=== PATIENT | male | born 1975 | race Caucasian/White ===

== ENCOUNTER 2022-07-06 10:09 | Inpatient (IN) | payer BC, OTHER ==
[2022-07-06] MEDS ORDERED: Iopamidol-370 76% 500 ML 1 ML ONE (11:52)
[2022-07-06] MEDS ORDERED: Ketorolac Tromethamine 30 MG/ML VIAL ONE (11:59)
[2022-07-06] MEDS ORDERED: Acetaminophen 500 MG TAB ONE (11:59)
[2022-07-06 12:54] LABS: Hemoglobin 13.5 g/dL (14.0-18.0); Mean Corpuscular HGB CONC 34.1 g/dL (32.0-36.0); Mean Corpuscular Hemoglobin 33.3 pg (27.0-31.0); Mean Corpuscular Volume 97.9 fL (78.0-98.0); Red Blood Cell (RBC) Count 4.05 mill/uL (4.70-6.10); White Blood Cell (WBC) Count 5.4 thou/uL (4.8-10.8)
[2022-07-06 13:07] LABS: ALT (SGPT) 17 U/L (8-55); AST (SGOT) 13 U/L (5-34); Alkaline Phosphatase 71 U/L (40-110); Anion Gap 14 mmol/L (10-20); BUN (Urea Nitrogen) 11 mg/dL (8.9-20.6); Bilirubin, Total 0.7 mg/dL (0.2-1.2); Calc. Creatinine Clearance 0 mL/min (70-130); Calcium 8.4 mg/dL (7.8-10.44); Carbon Dioxide 25 mmol/L (22-29); Chloride 105 mmol/L (98-107); Estimated GFR 109; Globulin 2.5 g/dL (2.4-3.5); Glucose 93 mg/dL (70-105); Potassium 4.2 mmol/L (3.5-5.1); Protein, Total 6.5 g/dL (6.0-8.3); Sodium 140 mmol/L (136-145)
[2022-07-06] MEDS ORDERED: Cefepime 2 GM VIAL ONE (13:25)
[2022-07-06] MEDS ORDERED: VANCOMYCIN 2 GRAM/500 ML BAG 2 GM in Premix Bag 1 BAG IVPB SCH (13:45)
[2022-07-06 13:50] LABS: Band 8 % (5-11); Differential Comment Immature Cell(s); Lymphocytes 41 % (21-51); MDiff Complete? YES; Mean Platelet Volume 8.9 fL (7.4-10.4); Metamyelocyte 1 % (0-0); Monocytes 17 % (0-10); Neutrophil 25 % (42-75); Platelet Count 80 thou/uL (130-400); Platelet Morphology Comment Appears Decreased; Polychromasia SLIGHT = 2-3 cells (100X) (0-2/hpf); Reactive Lymphocytes 3 % (0-10); Reflex for Review?? YES
[2022-07-06] MEDS ORDERED: Ondansetron ODT 4 MG TAB PO PRN (14:57)
[2022-07-06] MEDS ORDERED: Ondansetron PF 4 MG/2 ML Vial IVP PRN (14:57)
[2022-07-06] MEDS: Ketorolac Tromethamine 30 MG/ML VIAL IVP PRN (18:19)
[2022-07-06 19:09] VITALS: BMI 26.5
[2022-07-06] MEDS: VANCOMYCIN 1.25 GM/250 ML BAG 1.25 GM in Premix Bag 1 BAG IVPB SCH (23:35)
[2022-07-07] MEDS: VANCOMYCIN 1.25 GM/250 ML BAG 1.25 GM in Premix Bag 1 BAG IVPB SCH ×2 (07:08→16:04)
[2022-07-07 08:07] LABS: Reticulocyte Count 2.8 % (0.5-1.5)
[2022-07-07 08:23] LABS: INR-International Normal Ratio 1.1; PTT 38.5 sec (22.9-36.1); Prothrombin Time 14.1 sec (12.0-14.7)
[2022-07-07 08:25] LABS: Iron 61 ug/dL (65-175); Iron Binding Capacity, Total 261 mcg/dL (261-462)
[2022-07-07 08:27] LABS: Anion Gap 11 mmol/L (10-20); BUN (Urea Nitrogen) 12 mg/dL (8.9-20.6); Calc. Creatinine Clearance 135 mL/min (70-130); Calcium 8.4 mg/dL (7.8-10.44); Carbon Dioxide 24 mmol/L (22-29); Chloride 107 mmol/L (98-107); Estimated GFR 108; Glucose 98 mg/dL (70-105); Iron 62 ug/dL (65-175); Iron Binding Capacity, Total 265 mcg/dL (261-462); Potassium 4.4 mmol/L (3.5-5.1); Sodium 138 mmol/L (136-145); Uric Acid 4.3 mg/dL (3.5-7.2)
[2022-07-07 08:38] LABS: Band 7 % (5-11); Differential Comment Immature Cell(s); Eosinophils 2 % (0-10); Hemoglobin 13.3 g/dL (14.0-18.0); Lymphocytes 25 % (21-51); MDiff Complete? YES; Mean Corpuscular Hemoglobin 34.2 pg (27.0-31.0); Mean Corpuscular Volume 97.6 fL (78.0-98.0); Mean Platelet Volume 8.3 fL (7.4-10.4); Monocytes 5 % (0-10); Neutrophil 38 % (42-75); Platelet Count 75 thou/uL (130-400); Platelet Morphology Comment Appears Decreased; Polychromasia SLIGHT = 2-3 cells (100X) (0-2/hpf); RBC Distribution Width 12.9 % (11.5-14.5); Reactive Lymphocytes 17 % (0-10); Red Blood Cell (RBC) Count 3.89 mill/uL (4.70-6.10); White Blood Cell (WBC) Count 4.6 thou/uL (4.8-10.8)
[2022-07-07] MEDS: Ketorolac Tromethamine 30 MG/ML VIAL IVP PRN (08:38)
[2022-07-07] MEDS ORDERED: Enoxaparin Sodium 40 MG/0.4 ML SYRINGE SC SCH (09:00)
[2022-07-07] MEDS: traMADol HCl 50 MG TAB PO PRN ×3 (09:50→22:01)
[2022-07-07] MEDS: cefTRIAXone\\ROCEPHIN 2 GM in Sodium Chloride 0.9% 100 ML IVPB SCH (09:53)
[2022-07-07 10:16] LABS: Ferritin 603.74 ng/mL (22-322)
[2022-07-07] MEDS: Morphine 2 MG/ML VIAL SLOW IVP PRN ×3 (10:48→17:59)
[2022-07-07] MEDS ORDERED: Lidocaine 1% MPF 2 ML VIAL ONE (12:40)
[2022-07-07] MEDS ORDERED: Sodium Bicarbonate 2.5 MEQ/5 ML VIAL ONE (12:40)
[2022-07-07 14:35] LABS: Vancomycin, Trough 13.2 ug/mL
[2022-07-07] MEDS: Vancomycin 1.5 GRAM/300 ML BAG 1.5 GM in Premix Bag 1 BAG IVPB SCH (15:55)
[2022-07-07] MEDS: Nicotine 7 MG PATCH TD SCH (16:13)
[2022-07-08] MEDS: Vancomycin 1.5 GRAM/300 ML BAG 1.5 GM in Premix Bag 1 BAG IVPB SCH ×3 (00:49→16:29)
[2022-07-08] MEDS: Morphine 2 MG/ML VIAL SLOW IVP PRN ×3 (02:35→18:13)
[2022-07-08] MEDS: traMADol HCl 50 MG TAB PO PRN ×2 (05:46→15:07)
[2022-07-08] MEDS: Acetaminophen 500 MG TAB PO PRN ×2 (05:46→15:07)
[2022-07-08 07:31] LABS: Anion Gap 13 mmol/L (10-20); BUN (Urea Nitrogen) 10 mg/dL (8.9-20.6); Calc. Creatinine Clearance 114 mL/min (70-130); Calcium 8.3 mg/dL (7.8-10.44); Carbon Dioxide 25 mmol/L (22-29); Chloride 103 mmol/L (98-107); Estimated GFR 92; Glucose 110 mg/dL (70-105); Sodium 137 mmol/L (136-145)
[2022-07-08 08:03] LABS: Band 6 % (5-11); Eosinophils 1 % (0-10); Hemoglobin 11.9 g/dL (14.0-18.0); Lymphocytes 27 % (21-51); MDiff Complete? YES; Mean Corpuscular HGB CONC 33.9 g/dL (32.0-36.0); Mean Corpuscular Hemoglobin 32.9 pg (27.0-31.0); Mean Platelet Volume 8.1 fL (7.4-10.4); Monocytes 10 % (0-10); Myelocyte 1 % (0-0); Neutrophil 46 % (42-75); Platelet Count 84 thou/uL (130-400); Platelet Morphology Comment Appears Decreased; RBC Distribution Width 13.1 % (11.5-14.5); Reactive Lymphocytes 8 % (0-10); Red Blood Cell (RBC) Count 3.63 mill/uL (4.70-6.10); White Blood Cell (WBC) Count 4.5 thou/uL (4.8-10.8)
[2022-07-08] MEDS: cefTRIAXone\\ROCEPHIN 2 GM in Sodium Chloride 0.9% 100 ML IVPB SCH (10:42)
[2022-07-08] MEDS: Nicotine 7 MG PATCH TD SCH (13:46)
[2022-07-08 15:41] LABS: Vancomycin, Trough 18.2 ug/mL
[2022-07-09] MEDS: traMADol HCl 50 MG TAB PO PRN ×3 (00:19→17:02)
[2022-07-09] MEDS: Vancomycin 1.5 GRAM/300 ML BAG 1.5 GM in Premix Bag 1 BAG IVPB SCH ×2 (00:20→08:40)
[2022-07-09] MEDS: Morphine 2 MG/ML VIAL SLOW IVP PRN (09:28)
[2022-07-09] MEDS: cefTRIAXone\\ROCEPHIN 2 GM in Sodium Chloride 0.9% 100 ML IVPB SCH (10:44)
[2022-07-09] MEDS: Nicotine 7 MG PATCH TD SCH (13:21)
[2022-07-10 08:40] VITALS: BP 130/83; TEMP 97.9
[2022-07-10] MEDS: cefTRIAXone\\ROCEPHIN 2 GM in Sodium Chloride 0.9% 100 ML IVPB SCH (10:07)
[2022-07-10] MEDS: Nicotine 7 MG PATCH TD SCH (14:38)
== END 2022-07-10 19:30 | disposition home or self-care (01) | DRG 812 ==
LOC: ERS 10:09 → T4-B 15:42
PROVIDERS: ADMIT Hospitalist; ATTEND Family Medicine
PROC: 079T3ZX Drainage of Bone Marrow, Percutaneous Approach, Diagnostic (ICD-10-PCS; principal; 2022-07-07)
PROC: 07DR3ZX Extraction of Iliac Bone Marrow, Percutaneous Approach, Diagnostic (ICD-10-PCS; 2022-07-07)
DX: D46.9 Myelodysplastic syndrome, unspecified (principal); L03.115 Cellulitis of right lower limb; D61.818 Other pancytopenia; J44.9 Chronic obstructive pulmonary disease, unspecified; F17.210 Nicotine dependence, cigarettes, uncomplicated; R79.9 Abnormal finding of blood chemistry, unspecified; Z20.822 Contact with and (suspected) exposure to COVID-19; Z98.890 Other specified postprocedural states; Z95.828 Presence of other vascular implants and grafts; Z71.6 Tobacco abuse counseling
CPT/HCPCS: 36415; 38222; 77002; 80048; 80053; 80202; 82607; 82728; 83540; 83550; 83615; 84550; 85025; 85046; 85060; 85097; 85610; 85652; 85730; 86140; 87040; 88121; 88184; 88237; 88305; 88311; 88313; 96365; 96367; 96375; J0692; J0696; J1885; J2270; J3370; J3490; Q9967; U0003; U0005

== ENCOUNTER 2022-09-11 16:48 | Emergency (ER) | payer BC ==
[2022-09-11 17:29] LABS: ALT (SGPT) 17 U/L (8-55); AST (SGOT) 14 U/L (5-34); Albumin 4.2 g/dL (3.5-5.0); Alkaline Phosphatase 110 U/L (40-110); Anion Gap 13 mmol/L (10-20); BUN (Urea Nitrogen) 8 mg/dL (8.9-20.6); Bilirubin, Total 0.3 mg/dL (0.2-1.2); Calc. Creatinine Clearance 0 mL/min (70-130); Calcium 9.2 mg/dL (7.8-10.44); Carbon Dioxide 27 mmol/L (22-29); Chloride 104 mmol/L (98-107); Estimated GFR 98; Globulin 2.9 g/dL (2.4-3.5); Glucose 100 mg/dL (70-105); Potassium 3.5 mmol/L (3.5-5.1); Protein, Total 7.1 g/dL (6.0-8.3); Sodium 140 mmol/L (136-145)
[2022-09-11 17:48] LABS: Band 15 % (5-11); Eosinophils 9 % (0-10); Hemoglobin 11.2 g/dL (14.0-18.0); Lymphocytes 31 % (21-51); MDiff Complete? YES; Mean Corpuscular HGB CONC 34.4 g/dL (32.0-36.0); Mean Corpuscular Hemoglobin 33.7 pg (27.0-31.0); Mean Corpuscular Volume 98.1 fL (78.0-98.0); Mean Platelet Volume 17.4 fL (7.4-10.4); Monocytes 6 % (0-10); Neutrophil 31 % (42-75); Platelet Count 6 thou/uL (130-400); Platelet Morphology Comment Appears Decreased; RBC Distribution Width 16.3 % (11.5-14.5); Reactive Lymphocytes 8 % (0-10); Red Blood Cell (RBC) Count 3.31 mill/uL (4.70-6.10); Tear Drops SLIGHT = 2-5 cells (100X) (0-1/hpf); White Blood Cell (WBC) Count 5.7 thou/uL (4.8-10.8)
== END 2022-09-11 22:17 | disposition home or self-care (01) ==
LOC: ERS 16:48
DX: C92.00 Acute myeloblastic leukemia, not having achieved remission (principal); D69.6 Thrombocytopenia, unspecified; F17.210 Nicotine dependence, cigarettes, uncomplicated
CPT/HCPCS: 36415; 36430; 80053; 85025; 86850; 86900; 86901; 99283; P9035

== ENCOUNTER 2022-10-04 09:30 | Emergency (ER) | payer BC ==
[2022-10-04 10:52] LABS: PTT 40.7 sec (22.9-36.1); Prothrombin Time 13.5 sec (12.0-14.7)
[2022-10-04 11:03] LABS: Mean Corpuscular HGB CONC 34.1 g/dL (32.0-36.0); Mean Corpuscular Hemoglobin 36.4 pg (27.0-31.0); Platelet Count Less than 2 10x3/uL (130-400); Platelet Morphology Comment Appears Decreased; RBC Distribution Width 16.6 % (11.5-14.5); RBC Morphology Normal; Red Blood Cell (RBC) Count 2.47 mill/uL (4.70-6.10); White Blood Cell (WBC) Count 0.2 10x3/uL (4.8-10.8)
[2022-10-04 11:11] LABS: ALT (SGPT) 14 U/L (8-55); AST (SGOT) 16 U/L (5-34); Albumin 3.6 g/dL (3.5-5.0); Alkaline Phosphatase 79 U/L (40-110); Anion Gap 11 mmol/L (10-20); BUN (Urea Nitrogen) 12 mg/dL (8.9-20.6); Bilirubin, Total 0.8 mg/dL (0.2-1.2); Calc. Creatinine Clearance 0 mL/min (70-130); Calcium 8.6 mg/dL (7.8-10.44); Carbon Dioxide 24 mmol/L (22-29); Chloride 106 mmol/L (98-107); Estimated GFR 113; Globulin 2.7 g/dL (2.4-3.5); Glucose 83 mg/dL (70-105); Magnesium 1.9 mg/dL (1.6-2.6); Potassium 3.7 mmol/L (3.5-5.1); Protein, Total 6.3 g/dL (6.0-8.3); Sodium 137 mmol/L (136-145)
[2022-10-04 12:12] LABS: Bilirubin Negative (Negative); Blood, Urine Negative (Negative); Clarity Clear (Clear); Glucose, Urine (Dipstick) Normal (Negative); Ketone, Urine Negative (Negative); Leukocyte Negative Leu/uL (Negative); Nitrite Negative (Negative); Protein, Urine (Dipstick) Negative (Neg-Trace); Specific Gravity, Urine 1.024 (1.002-1.036); Urobilinogen 3 mg/dL (Less than 2)
== END 2022-10-04 13:53 | disposition home or self-care (01) ==
LOC: ERS 09:30
DX: C92.00 Acute myeloblastic leukemia, not having achieved remission (principal); D69.6 Thrombocytopenia, unspecified; F17.210 Nicotine dependence, cigarettes, uncomplicated; J44.9 Chronic obstructive pulmonary disease, unspecified
CPT/HCPCS: 36415; 36430; 80053; 81003; 83735; 85025; 85610; 85730; 86850; 86900; 86901; 99283; P9035

== ENCOUNTER 2022-10-06 08:35 | Emergency (ER) | payer BC, OTHER ==
[2022-10-06 09:10] LABS: Hemoglobin 9.7 g/dL (14.0-18.0); Mean Corpuscular HGB CONC 35.1 g/dL (32.0-36.0); Mean Corpuscular Hemoglobin 36.8 pg (27.0-31.0); Mean Platelet Volume 15.5 fL (7.4-10.4); Platelet Count 10 10x3/uL (130-400); RBC Distribution Width 15.3 % (11.5-14.5); Red Blood Cell (RBC) Count 2.63 mill/uL (4.70-6.10); White Blood Cell (WBC) Count 0.2 10x3/uL (4.8-10.8)
[2022-10-06 09:25] LABS: ALT (SGPT) 14 U/L (8-55); AST (SGOT) 16 U/L (5-34); Albumin 4.1 g/dL (3.5-5.0); Alkaline Phosphatase 95 U/L (40-110); Anion Gap 14 mmol/L (10-20); BUN (Urea Nitrogen) 9 mg/dL (8.9-20.6); Bilirubin, Total 0.9 mg/dL (0.2-1.2); Calc. Creatinine Clearance 0 mL/min (70-130); Calcium 9.3 mg/dL (7.8-10.44); Carbon Dioxide 22 mmol/L (22-29); Chloride 104 mmol/L (98-107); Estimated GFR 110; Globulin 3.4 g/dL (2.4-3.5); Glucose 97 mg/dL (70-105); Potassium 4.1 mmol/L (3.5-5.1); Protein, Total 7.5 g/dL (6.0-8.3); Sodium 136 mmol/L (136-145)
[2022-10-06 09:57] LABS: Anisocytosis SLIGHT = 6-15 cells (100X) (0-5/hpf); MDiff Complete? YES; Platelet Morphology Comment Appears Decreased
== END 2022-10-06 13:45 | disposition home or self-care (01) ==
LOC: ERS 08:35
DX: D69.6 Thrombocytopenia, unspecified (principal); J44.9 Chronic obstructive pulmonary disease, unspecified; F17.210 Nicotine dependence, cigarettes, uncomplicated
CPT/HCPCS: 36415; 36430; 80053; 85025; 86850; 86900; 86901; 99291; P9035

== ENCOUNTER 2022-11-21 13:17 | Day surgery (SDC) | payer BC, OTHER ==
[2022-11-21] MEDS ORDERED: Acetaminophen 500 MG TAB ONE (13:49)
[2022-11-21] MEDS ORDERED: diphenhydrAMINE 25 MG CAP ONE (13:49)
[2022-11-21 15:04] VITALS: TEMP 98.5
[2022-11-21 15:10] VITALS: BP 140/89
== END 2022-11-21 15:44 | disposition home or self-care (01) ==
LOC: ONC/OP 13:17
PROVIDERS: ATTEND Internal Medicine Hematology & Oncology
PROC: 30233R1 Transfusion of Nonautologous Platelets into Peripheral Vein, Percutaneous Approach (ICD-10-PCS; principal; 2022-11-21)
DX: D69.6 Thrombocytopenia, unspecified (principal); D64.9 Anemia, unspecified
CPT/HCPCS: 36430; 86850; 86900; 86901; P9035

== ENCOUNTER 2023-01-03 07:03 | Day surgery (SDC) | payer OTHER ==
[2023-01-03 07:48] LABS: Hemoglobin 14.7 g/dL (14.0-18.0); Mean Corpuscular HGB CONC 33.3 g/dL (32.0-36.0); Mean Corpuscular Hemoglobin 35.9 pg (27.0-31.0); Mean Platelet Volume 9.9 fL (7.4-10.4); Platelet Count 102 10x3/uL (130-400); Red Blood Cell (RBC) Count 4.08 mill/uL (4.70-6.10); White Blood Cell (WBC) Count 4.3 10x3/uL (4.8-10.8)
[2023-01-03 07:56] LABS: INR-International Normal Ratio 0.9; PTT 31.4 sec (22.9-36.1)
[2023-01-03 08:47] VITALS: BP 171/110; TEMP 98.2
[2023-01-03 10:13] LABS: Eosinophils 7 % (0-10); Lymphocytes 25 % (21-51); MDiff Complete? YES; Monocytes 17 % (0-10); Neutrophil 51 % (42-75); Platelet Morphology Comment Appears Decreased; RBC Morphology Normal
== END 2023-01-03 12:15 | disposition home or self-care (01) ==
LOC: CT 07:03
PROVIDERS: ATTEND Internal Medicine Hematology & Oncology
PROC: 07DR3ZX Extraction of Iliac Bone Marrow, Percutaneous Approach, Diagnostic (ICD-10-PCS; principal; 2023-01-03)
DX: C92.00 Acute myeloblastic leukemia, not having achieved remission (principal); F17.210 Nicotine dependence, cigarettes, uncomplicated; J44.9 Chronic obstructive pulmonary disease, unspecified; Z79.2 Long term (current) use of antibiotics; Z79.899 Other long term (current) drug therapy
CPT/HCPCS: 20225; 77002; 85025; 85097; 85610; 85730; 88184; 88237; 88305; 88311; 88313; 88341; 88342

== ENCOUNTER 2024-01-28 08:57 | Day surgery (SDC) | payer OTHER ==
[2024-01-28 09:22] LABS: #Eosinphils 0.1 thou/uL (0.0-0.7); #Monocytes 0.8 thou/uL (0.11-0.59); #Neutrophils 3.6 thou/uL (1.40-6.50); %Basophils 0.6 % (0.0-1.0); %Lymphocytes 33.6 % (21.0-51.0); %Monocytes 11.4 % (0.0-10.0); %Neutrophils 51.7 % (42.0-75.0); Hematocrit 46.2 % (42.0-52.0); Mean Corpuscular HGB CONC 34.6 g/dL (32.0-36.0); Mean Corpuscular Hemoglobin 33.3 pg (27.0-31.0); Mean Corpuscular Volume 96.3 fl (78.0-98.0); Mean Platelet Volume 8.8 fL (7.4-10.4); Platelet Count 219 10x3/uL (130-400); RBC Distribution Width 13.1 % (11.5-14.5); White Blood Cell (WBC) Count 6.9 10x3/uL (4.8-10.8)
[2024-01-28 09:33] LABS: INR-International Normal Ratio 0.9; PTT 30.4 sec (22.9-36.1); Prothrombin Time 12.3 sec (12.0-14.7)
[2024-01-28 10:10] VITALS: BP 125/93; TEMP 97.4
[2024-01-28] MEDS ORDERED: Lidocaine 1% w/Epinephrine 1:100K 20 ML VIAL ONE (10:12)
[2024-01-28] MEDS ORDERED: fentaNYL 50 mcg/mL 1 mL Vial ONE (10:12)
[2024-01-28] MEDS ORDERED: Midazolam HCl 2 mg/2 ml Vial ONE (10:12)
[2024-01-28] MEDS ORDERED: Sodium Bicarbonate 2.5 MEQ/5 ML SDV ONE (10:13)
[2024-01-28] MEDS ORDERED: FLU VACC QS2023-24(6MOS UP)/PF 60 MCG/0.5 ML SYRINGE IM ONE (14:00)
== END 2024-01-28 11:45 | disposition home or self-care (01) ==
LOC: CT 08:57
PROVIDERS: ATTEND Internal Medicine Hematology & Oncology
PROC: 079T3ZX Drainage of Bone Marrow, Percutaneous Approach, Diagnostic (ICD-10-PCS; principal; 2024-01-28)
DX: C92.00 Acute myeloblastic leukemia, not having achieved remission (principal); F17.210 Nicotine dependence, cigarettes, uncomplicated
CPT/HCPCS: 20225; 77002; 85025; 85097; 85610; 85730; 88184; 88237; 88305; 88311; 88341; 88342; 99153; J2250; J3010